=== PATIENT | female | born 1990 | race Two or more races ===

== ENCOUNTER 2020-05-09 05:53 | Inpatient (IN) | payer OTHER ==
[~2020-05-09] VITALS: Ht 167.6 cm; Wt 68.0 kg
== END 2020-05-11 15:55 | DRG 807 ==
LOC: OB/GYN 05:53 → LDR 05:53 → OB/GYN 08:31
PROVIDERS: ADMIT Obstetrics & Gynecology; ATTEND Obstetrics & Gynecology
PROC: 10E0XZZ Delivery of Products of Conception, External Approach (ICD-10-PCS; principal; 2020-05-09)
PROC: 4A1HXFZ Monitoring of Products of Conception, Cardiac Rhythm, External Approach (ICD-10-PCS; 2020-05-09)
DX: O90.81 Anemia of the puerperium (principal); Z37.0 Single live birth; D64.9 Anemia, unspecified; Z3A.39 39 weeks gestation of pregnancy; Z20.828 Contact with and (suspected) exposure to other viral communicable diseases

== ENCOUNTER 2022-03-02 15:30 | Emergency (ER) | payer OTHER ==
[~2022-03-02] VITALS: Ht 170.2 cm; Wt 68.0 kg
[2022-03-02] MEDS ORDERED: PRENATA CHEWAB1 EACH PO (15:37)
== END 2022-03-02 19:24 | disposition home or self-care (01) ==
LOC: ER 15:30
DX: O99.013 Anemia complicating pregnancy, third trimester (principal); Z3A.30 30 weeks gestation of pregnancy; R51.9 Headache, unspecified; Z20.822 Contact with and (suspected) exposure to COVID-19